=== PATIENT | female | born 1950 | race Caucasian/White ===

== ENCOUNTER 2020-11-02 10:15 | Inpatient (IN) | payer OTHER ==
[~2020-11-02] VITALS: Ht 160 cm; Wt 73.9 kg
[2020-11-02] MEDS ORDERED: HUMULIN (12:02)
[2020-11-02] MEDS ORDERED: SIMVASTAT PO (12:03)
[2020-11-02] MEDS ORDERED: CARDESARTAN PO (12:03)
[2020-11-02] MEDS ORDERED: BAYER THERAPY325 MG PO (12:04)
[2020-11-10] MEDS ORDERED: CANDESARTAN CIL16 MG (08:34)
[2020-11-10] MEDS ORDERED: HUMULIN 70100 UNIT/2 (08:34)
[2020-11-10] MEDS ORDERED: SIMVASTATIN40 MG (08:34)
== END 2020-11-12 17:06 | disposition home or self-care (01) | DRG 330 ==
LOC: SURG 11-09 06:39 → O/R 11-09 06:39 → SURH 11-09 07:00 → SURG 11-10 00:25
PROVIDERS: ADMIT Colon & Rectal Surgery; ATTEND Colon & Rectal Surgery
PROC: 0DBN4ZZ Excision of Sigmoid Colon, Percutaneous Endoscopic Approach (ICD-10-PCS; 2020-11-09)
PROC: 0DJD8ZZ Inspection of Lower Intestinal Tract, Via Natural or Artificial Opening Endoscopic (ICD-10-PCS; 2020-11-09)
PROC: 0DBP4ZZ Excision of Rectum, Percutaneous Endoscopic Approach (ICD-10-PCS; principal; 2020-11-09 08:20)
DX: K57.32 Diverticulitis of large intestine without perforation or abscess without bleeding (principal); K92.1 Melena; I10 Essential (primary) hypertension; Z79.4 Long term (current) use of insulin; E11.9 Type 2 diabetes mellitus without complications